=== PATIENT | male | born 1985 | race Caucasian/White ===

== ENCOUNTER → 2018-09-21 | Outpatient (REF) | payer OTHER ==
[2018-09-21 13:47] LABS: SEMEN APPEARANCE OPAQUE (OPAQUE)
[2018-09-21 13:48] LABS: SEMEN VISCOSITY LIQUID (LIQUID); SPERM CONCENTRATION 45.8 M/ml (>=15.0); WBC CONCENTRATION <=1 M/ml (<=1 M/ml)
== END ==
LOC: M LAB REF 12:49
PROVIDERS: ATTEND Family Medicine
DX: N46.9 Male infertility, unspecified (principal)